=== PATIENT | male | born 1965 | race African-American/Black ===

== ENCOUNTER 2017-03-28 15:09 | Inpatient (IN) | payer MEDICAID ==
[~2017-03-28] VITALS: Ht 190.5 cm; Wt 131.7 kg
[~2017-03-28 15:09] MED LIST: ALPR1TAB2 PO; ALPR2TAB2 PO; CARB200T PO; DOCU-109 PO; FERR325T58 PO; HYDR-2758 PO; HYDR50TA6 PO; METF500T4 PO; METO100T7 PO; MORP30TA83 PO; OXYC-323 PO; OXYC20TA42 PO; OXYC30TA PO; OXYC5CAP PO; OXYC60TA7 PO; OXYC80TA16 PO; PANT40TA3 PO; QUET400T4 PO; QUET50TA5 PO; SULF1TAB24 PO; TAMS0.4C97 PO
--- NOTE | 2017-03-28 15:55 | PHYS DOC ---
Past Medical History Past Medical History: CAD, Diabetes-Type II, Hypertension, Kidney Stone, Liver Disease, OK, Seizure, Stroke, Other Additional Past Medical Histor: Deaf in R Ear. Past Surgical History: Angioplasty, Other Additional Past Surgical Histo: Back, face, feet, STENT PLACEMENT,KELOID SURGERY Alcohol Use: None Drug Use: None Adult General Chief Complaint Chief Complaint: CHEST PAIN HPI HPI Patient is a 51 year old M who presents with chest pain that started today. Patient states he has central chest plain nonradiating. Patient states she's had one previous stent and is currently on Xaralto for history of PEs. Patient states he smokes, has hypertension, is diabetic and is obese. Patient does not currently see a net maker. Patient denies any shortness of breath. Patient denies any fevers. Patient is no other complaints. Review of Systems Review of Systems GEN: Denies fevers, chills, sweats HEENT: Denies blurred vision, sore throat CV: Chest pain RESP: Denies shortness of air, cough GI: Denies n/v/d NEURO: Denies confusion, dizziness MSK: Denies weakness, joint pain/swelling All other systems were reviewed and found to be within normal limits, except as documented in this note. Current Medications Current Medications Current Medications Medications (Trade) Dose Ordered Sig/Debby Start Time Stop Time Status Last Admin Dose Admin Acetaminophen (Tylenol) 650 mg 1X ONCE 03/28/17 16:00 03/28/17 16:01 DC 03/28/17 16:09 650 MG Fentanyl Citrate (Fentanyl 2ml Vial) 100 mcg 1X ONCE 03/28/17 17:45 03/28/17 17:46 DC Info (Do NOT chart on this entry -- for MONITORING) 1 each PRN DAILY PRN 03/28/17 16:15 03/30/17 16:14 Iohexol (Omnipaque 300 Mg/ml) 75 ml 1X ONCE 03/28/17 16:15 03/28/17 16:16 DC 03/28/17 16:15 75 ML Morphine Sulfate 4 mg 1X ONCE 03/28/17 16:00 03/28/17 16:01 DC 03/28/17 16:10 4 MG Nitroglycerin (Nitro-Dur 0.1mg) 1 patch DAILY 03/29/17 09:00 Nitroglycerin (Nitrostat) 0.4 mg PRN Q5MIN PRN 03/28/17 16:00 Allergies Allergies Allergies Coded Allergies Type Severity Reaction Last Updated Verified Penicillins Allergy Intermediate 06/24/15 Yes ketorolac Allergy Intermediate RASH, ASA is home med 11/25/15 Yes naproxen Allergy Intermediate ASA is home med 10/21/15 Yes prochlorperazine Allergy Intermediate 06/24/15 Yes tramadol Allergy Intermediate TOLERATES PERCOCET 06/24/15 Yes acetaminophen Adverse Reaction Unknown 03/28/17 Yes Physical Exam Physical Exam GEN.: Mild distress. Alert and oriented. HEENT: Head is normocephalic, atraumatic NECK: Supple. LUNGS: CTAB. HEART: RRR, S1, S2 present. Peripheral pulses intact ABDOMEN: Soft, nontender. Positive bowel sounds. EXTREMITIES: Without any cyanosis. NEUROLOGIC: Normal speech, normal tone PSYCHIATRIC: Normal affect, normal mood. SKIN: No ulcerations Current Patient Data Vital Signs Vital Signs Date Time Temp Pulse Resp B/P (MAP) Pulse Ox O2 Delivery O2 Flow Rate FiO2 03/28/17 16:10 18 97 Room Air 03/28/17 15:18 97.9 98 128/75 (92) 97.9 Lab Values Laboratory Tests Test 03/28/17 15:30 White Blood Count 5.4 x10^3/uL (4.0-11.0) Red Blood Count 5.26 x10^6/uL (4.30-5.70) Hemoglobin 15.1 g/dL (13.0-17.5) Hematocrit 46.4 % (39.0-53.0) Mean Corpuscular Volume 88 fL (79-100) Mean Corpuscular Hemoglobin 29 pg (25-35) Mean Corpuscular Hemoglobin Concent 33 g/dL (31-37) Red Cell Distribution Width 14.9 % (11.5-14.5) H Platelet Count 232 x10^3/uL (140-400) Neutrophils (%) (Auto) 42 % (31-73) Lymphocytes (%) (Auto) 45 % (24-48) Monocytes (%) (Auto) 10 % (0-9) H Eosinophils (%) (Auto) 3 % (0-3) Basophils (%) (Auto) 0 % (0-3) Neutrophils # (Auto) 2.3 x10^3uL (1.8-7.7) Lymphocytes # (Auto) 2.4 x10^3/uL (1.0-4.8) Monocytes # (Auto) 0.5 x10^3/uL (0.0-1.1) Eosinophils # (Auto) 0.2 x10^3/uL (0.0-0.7) Basophils # (Auto) 0.0 x10^3/uL (0.0-0.2) Sodium Level 139 mmol/L (136-145) Potassium Level 4.1 mmol/L (3.5-5.1) Chloride Level 101 mmol/L (98-107) Carbon Dioxide Level 29 mmol/L (21-32) Anion Gap 9 (6-14) Blood Urea Nitrogen 16 mg/dL (8-26) Creatinine 1.1 mg/dL (0.7-1.3) Estimated GFR (Cockcroft-Gault) 86.1 BUN/Creatinine Ratio 15 (6-20) Glucose Level 139 mg/dL (70-99) H Calcium Level 8.8 mg/dL (8.5-10.1) Total Bilirubin 0.4 mg/dL (0.2-1.0) Aspartate Amino Transferase (AST) 28 U/L (15-37) Alanine Aminotransferase (ALT) 30 U/L (16-63) Alkaline Phosphatase 75 U/L (46-116) Troponin I Quantitative < 0.017 ng/mL (0.000-0.055) Total Protein 7.6 g/dL (6.4-8.2) Albumin 3.8 g/dL (3.4-5.0) Albumin/Globulin Ratio 1.0 (1.0-1.7) Laboratory Tests 03/28/17 15:30 Laboratory Tests 03/28/17 15:30 EKG EKG 1516: EKG shows normal sinus rhythm rate of 92 no STEMI[] Radiology/Procedures Radiology/Procedures Chest x-ray NAD CTA chest NAD[] Course & Med Decision Making Course & Med Decision Making Pertinent Labs and Imaging studies reviewed. (See chart for details) ED course: Patient was seen and examined emergency room cardiac workup was ordered along with a CTA of the chest Patient is still having chest pain therefore will give 4mg of morphine Patient still having chest pain we'll prescribe 50 g of fentanyl Updated patient on lab results and plan to admit for cardiac workup 1758: Discussed CC/HP/PMH with Dr. Montiel and recommends admit and consult cardiology MDM: After reviewing the chart, CC/HPI/PMH, physical exam, [lab results], [ radiological results], I do not believe the patient having a STEMI, PE, thoracic aortic dissection. Patient has a cardiac risk factors and with his persistent chest pain will admit for further evaluation and management. [] Dragon Disclaimer Dragon Disclaimer This electronic medical record was generated, in whole or in part, using a voice recognition dictation system. Departure Departure Impression: Primary Impression: Chest pain Additional Impression: CAD (coronary artery disease) Disposition: 09 ADMITTED INPATIENT Admitting Physician: Other (Dr. Montiel) Condition: STABLE Referrals: NO PCP (PCP) Problem Qualifiers ABDIFATAH NICHOLS DO Mar 28, 2017 15:55
[2017-03-28] MEDS ORDERED: MORPHINE SULFATE 4 MG/ML DISP.SYRIN. IV ONE (16:00)
[2017-03-28] MEDS ORDERED: ACETAMINOPHEN 325 MG TABLET. PO ONE (16:00)
[2017-03-28] MEDS ORDERED: NITROGLYCERIN SUBLINGUAL 0.4 MG BOTTLE OF 25. SL PRN ×2 (16:00→18:15)
--- NOTE | 2017-03-28 16:03 | EKG ---
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
[2017-03-28] MEDS ORDERED: IOHEXOL 300 MG/ML 100ML VIAL. IV ONE (16:15)
[2017-03-28] MEDS ORDERED: CONTRAST GIVEN MC PRN (16:15)
--- NOTE | 2017-03-28 16:18 | RAD ---
Indication: Atraumatic chest pain today. Midsternal chest pain. Diabetic and hypertensive. Technique: Upright portable chest radiograph was obtained. Comparison is from February 07, 2016. Findings: The lungs are clear. The heart is not enlarged and there is no heart failure. Bony structures are intact. Leads overlie the patient. Impression: No acute thoracic findings.
[2017-03-28 16:35] LABS: BASO % 0 % (0-3); EOS % 3 % (0-3); HEMATOCRIT 46.4 % (39.0-53.0); HEMOGLOBIN 15.1 g/dL (13.0-17.5); LYMPH # 2.4 x10^3/uL (1.0-4.8); LYMPH % 45 % (24-48); MEAN CORPUSCULAR HEMOGLOBIN 29 pg (25-35); MEAN CORPUSCULAR HGB CONC 33 g/dL (31-37); MEAN CORPUSCULAR VOLUME 88 fL (79-100); MONO % 10 % (0-9); NEUT % 42 % (31-73); PLATELET COUNT 232 x10^3/uL (140-400); RED BLOOD COUNT 5.26 x10^6/uL (4.30-5.70); RED CELL DISTRIBUTION WIDTH 14.9 % (11.5-14.5); WHITE BLOOD COUNT 5.4 x10^3/uL (4.0-11.0)
[2017-03-28 16:48] LABS: CALCIUM 8.8 mg/dL (8.5-10.1); CREATININE 1.1 mg/dL (0.7-1.3); GFR 86.1; POTASSIUM 4.1 mmol/L (3.5-5.1)
[2017-03-28 16:54] LABS: ALBUMIN 3.8 g/dL (3.4-5.0); TOTAL BILIRUBIN 0.4 mg/dL (0.2-1.0); TOTAL PROTEIN 7.6 g/dL (6.4-8.2)
--- NOTE | 2017-03-28 17:34 | RAD ---
CTA Chest with contrast: Clinical History: CP, HX PE, LIMITED IV ACCESS, [id number] 75ML, NO PRIORS Shortness of breath. Axial helical images of the chest were obtained after the administration of 75 cc of IV Omni 300 and timed appropriately for a pulmonary arterial study. Conventional axial reconstruction was performed in addition to coronal, sagittal and bilateral oblique MIP (maximum intensity projection). This study was ordered to detect possible pulmonary embolism. There are no filling defects to suggest pulmonary embolism. The lungs and pleural margins are clear. There is no mediastinal or hilar lymphadenopathy. The thoracic aorta appears normal. Impression: 1. No evidence of pulmonary embolism. 2. No significant findings. PQRS Compliance Statement: One or more of the following individualized dose reduction techniques were utilized for this examination: 1. Automated exposure control 2. Adjustment of the mA and/or kV according to patient size 3. Use of iterative reconstruction technique Electronically signed by: Uriah Messer III, MD (03/28/2017 5:31 PM) [facility]
[2017-03-28] MEDS ORDERED: fentaNYL PF VIAL 100 MCG/2 ML VIAL IV ONE (17:45)
[2017-03-28] MEDS ORDERED: ONDANSETRON PF 4 MG/2 ML VIAL. IV PRN (18:15)
--- NOTE | 2017-03-28 19:40 | RAD ---
Scrotal ultrasound testicular ultrasound History bilateral testicular pain Sonographic examination of the scrotal contents and testes was performed multiple static images were obtained. Findings: Right: The right testis measures 3.3 x 4.3 x 2.4 cm. Epididymis: normal Hydrocele: Mild Varicocele: Mild Testicular blood flow: normal Left: The left testis measures 3.9 x 2.9 x 2.4 cm. Epididymis: normal Hydrocele: No Varicocele: Mild Testicular blood flow: normal There are small cyst the testes bilaterally however, the testes are otherwise homogeneous. Impression: Normal testes with normal blood flow. No intra or extratesticular mass. Electronically signed by: Uriah Messer III, MD (03/28/2017 7:37 PM) [facility]
[2017-03-28] MEDS ORDERED: RIVA15TA PO (20:11)
[2017-03-28] MEDS ORDERED: OXYC15TA PO (20:13)
[2017-03-28 20:25] VITALS: BP 132/86
[2017-03-28] MEDS ORDERED: ALPR0.5T6 PO (20:26)
[2017-03-28] MEDS ORDERED: ALPRAZolam 1 MG TABLET PO PRN (20:30)
[2017-03-28] MEDS: fentaNYL PF VIAL 100 MCG/2 ML VIAL IV PRN (20:41)
[2017-03-28] MEDS ORDERED: oxyCODONE IR 5 MG TABLET PO PRN ×2 (20:45→22:28)
[2017-03-28] MEDS ORDERED: QUEtiapine 100 MG TABLET. PO SCH (20:45)
[2017-03-28] MEDS ORDERED: QUET300T5 PO (20:48)
[2017-03-28] MEDS ORDERED: metFORMIN 500 MG TABLET PO SCH (21:00)
[2017-03-28] MEDS ORDERED: oxyCODONE ER 40 MG TAB.ER.12H PO SCH (21:00)
[2017-03-28] MEDS: DOCUSATE SODIUM 100 MG CAPSULE. PO SCH (21:00)
[2017-03-28] MEDS ORDERED: oxyCODONE ER 10 MG TAB.ER.12H PO SCH (21:00)
[2017-03-28] MEDS: hydroCHLOROthiazide 25 MG TABLET PO SCH (21:00)
[2017-03-28] MEDS: METOPROLOL TART IMMED RELEASE 50 MG TABLET. PO SCH (21:00)
[2017-03-28] MEDS: QUEtiapine 100 MG TABLET. PO SCH (21:55)
[2017-03-28 22:00] VITALS: BP_SYST 105; BP_SYST 137; BP_DIAS 64
[2017-03-28] MEDS: ALPRAZolam 0.5 MG TABLET PO PRN (22:00)
[2017-03-29] MEDS: fentaNYL PF VIAL 100 MCG/2 ML VIAL IV PRN ×2 (00:28→05:34)
[2017-03-29 02:37] VITALS: BP 127/68
[2017-03-29 06:34] LABS: BASO % 0 % (0-3); EOS % 4 % (0-3); HEMATOCRIT 44.8 % (39.0-53.0); HEMOGLOBIN 14.4 g/dL (13.0-17.5); LYMPH % 51 % (24-48); MEAN CORPUSCULAR HEMOGLOBIN 29 pg (25-35); MEAN CORPUSCULAR HGB CONC 32 g/dL (31-37); MEAN CORPUSCULAR VOLUME 89 fL (79-100); MONO % 9 % (0-9); NEUT % 36 % (31-73); PLATELET COUNT 208 x10^3/uL (140-400); RED BLOOD COUNT 5.03 x10^6/uL (4.30-5.70); WHITE BLOOD COUNT 3.9 x10^3/uL (4.0-11.0)
[2017-03-29 06:47] LABS: CALCIUM 8.6 mg/dL (8.5-10.1); GFR 96.1; POTASSIUM 3.8 mmol/L (3.5-5.1)
[2017-03-29 07:00] VITALS: BP 125/80
[2017-03-29] MEDS ORDERED: QUEtiapine 25 MG TABLET. PO SCH (09:00)
[2017-03-29] MEDS ORDERED: QUEtiapine 100 MG TABLET. PO SCH (09:00)
[2017-03-29] MEDS ORDERED: RIVAROXABAN 15 MG TABLET. PO SCH (09:00)
[2017-03-29] MEDS: ALPRAZolam 0.5 MG TABLET PO PRN (09:04)
[2017-03-29] MEDS: oxyCODONE ER 15 MG TAB.ER.12H PO SCH ×2 (09:04→21:24)
[2017-03-29] MEDS: PANTOPRAZOLE 40 MG TABLET.DR. PO SCH (09:05)
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
[2017-03-29 10:13] LABS: CHOLESTEROL/HDL RATIO 3.5
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
[2017-03-29 11:00] VITALS: BP 158/81
[2017-03-29] MEDS: hydroCHLOROthiazide 25 MG TABLET PO SCH ×2 (11:53→21:00)
[2017-03-29] MEDS: FERROUS SULFATE 325 MG TABLET. PO SCH (11:53)
[2017-03-29] MEDS: DOCUSATE SODIUM 100 MG CAPSULE. PO SCH ×2 (11:54→21:00)
[2017-03-29] MEDS: METOPROLOL TART IMMED RELEASE 50 MG TABLET. PO SCH (11:54)
[2017-03-29] MEDS: carBAMazepine 200 MG TABLET PO SCH (11:54)
[2017-03-29] MEDS: NITROGLYCERIN 0.1MG/HR PATCH. TD SCH (11:56)
--- NOTE | 2017-03-29 12:13 | EKG ---
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
[2017-03-29] MEDS ORDERED: HYDROmorphone 2 MG/ML VIAL IV ONE (13:00)
[2017-03-29 14:43] VITALS: BP 121/83
[2017-03-29] MEDS ORDERED: LIDO:MAALOX:DONNATAL 1:1:1 15 ML SINGLE DOSE SWSW ONE (16:00)
--- NOTE | 2017-03-29 17:43 | CARD ---
APPROVED REPORT EXAM: Two-dimensional and M-mode echocardiogram with Doppler and color Doppler. Other Information Quality : Good INDICATION Dyspnea 2D DIMENSIONS Left Atrium(2D)3.6 (1.6-4.0cm)IVSd1.2 (0.7-1.1cm) Aortic Root(2D)3.1 (2.0-3.7cm)LVDd4.4 (3.9-5.9cm) LVOT Diameter2.0 (1.8-2.4cm)PWd1.2 (0.7-1.1cm) LVDs3.2 (2.5-4.0cm)FS (%) 26.8 % SV46.6 mlLVEF(%)52.5 (>50%) Aortic Valve AoV Peak You.124.4cm/sAoV VTI25.3cm AO Peak GR.6.2mmHgLVOT VTI 19.89cm AO Mean GR.4mmHgAVA (VTI)2.60cm2 Mitral Valve MV E Uolhggdq41.1cm/sMV DECEL [id number] MV A Yfxxwcxy21.9cm/sE/A Ratio1.3 TDI Lateral E' P. V16.41cm/sMedial E' P. V9.01cm/s E/Lateral E'4.1E/Medial E'7.4 Tricuspid Valve TR P. Povnvcew436yv/sRAP [id number] TR Peak Gr.82qsVqLSJM39qlEl LEFT VENTRICLE The left ventricle is normal size. There is borderline concentric left ventricular hypertrophy. Left ventricle systolic function is normal. The Ejection Fraction is 55-60%. There is normal LV segmental wall motion. Tissue Doppler imaging reveals abnormal left ventricular diastolic dysfunction. RIGHT VENTRICLE The right ventricle is normal size. There is normal right ventricular wall thickness. The right ventr icular systolic function is normal. ATRIA The left atrium size is normal. The right atrium size is normal. The interatrial septum is intact wit h no evidence for an atrial septal defect or patent foramen ovale as noted on 2-D or Doppler imaging. AORTIC VALVE The aortic valve is calcified but opens well. Doppler and Color Flow revealed no significant aortic r egurgitation. There is no significant aortic valvular stenosis. MITRAL VALVE The mitral valve leaflets are calcified. There is no evidence of mitral valve prolapse. There is no m itral valve stenosis. Doppler and Color-flow revealed mild mitral regurgitation. TRICUSPID VALVE The tricuspid valve is normal in structure and function. Doppler and Color Flow revealed mild tricusp id regurgitation. The PA pressure was estimated at 13 mmHg. There is no tricuspid valve prolapse or v egetation. There is no tricuspid valve stenosis. PULMONIC VALVE The pulmonary valve is normal in structure and function. Doppler and Color Flow revealed trace pulmon ic valvular regurgitation. There is no pulmonic valvular stenosis. GREAT VESSELS The aortic root is normal in size. The ascending aorta is normal in size. The IVC is normal in size a nd collapses >50% with inspiration. PERICARDIAL EFFUSION There is no pleural effusion. There is no evidence of significant pericardial effusion. Critical Notification Critical Value: No <Conclusion> The left ventricle is normal size. Left ventricle systolic function is normal. The Ejection Fraction is 55-60%. There is borderline concentric left ventricular hypertrophy. There is no significant aortic valvular stenosis. Doppler and Color Flow revealed no significant aortic regurgitation. Doppler and Color-flow revealed mild mitral regurgitation. Doppler and Color Flow revealed mild tricuspid regurgitation. The PA pressure was estimated at 13 mmHg.
[2017-03-29] MEDS: oxyCODONE IR 5 MG TABLET PO PRN (17:44)
[2017-03-29] MEDS: ALPRAZolam 1 MG TABLET PO PRN ×2 (17:44→21:26)
[2017-03-29 19:38] VITALS: BP 116/81
[2017-03-29] MEDS ORDERED: ONDANSETRON ODT 4 MG TAB.RAPDIS. PO PRN (19:45)
[2017-03-29] MEDS: QUEtiapine 100 MG TABLET. PO SCH ×2 (21:00→21:23)
[2017-03-29 23:31] VITALS: BP 129/74
[2017-03-30] MEDS: oxyCODONE IR 5 MG TABLET PO PRN ×3 (00:58→13:08)
[2017-03-30 04:23] VITALS: BP 126/85
[2017-03-30 07:00] VITALS: BP 127/85
[2017-03-30] MEDS: NITROGLYCERIN 0.1MG/HR PATCH. TD SCH (09:00)
[2017-03-30] MEDS ORDERED: ANTI-COAG MONITOR BY PHARMACY. MC PRN (09:15)
[2017-03-30] MEDS: oxyCODONE ER 15 MG TAB.ER.12H PO SCH (09:17)
[2017-03-30] MEDS: ALPRAZolam 1 MG TABLET PO PRN (09:19)
[2017-03-30] MEDS ORDERED: REGADENOSON 0.4 MG/5 ML DISP.SYRIN. IV ONE (10:15)
[2017-03-30 11:25] VITALS: BP 127/85
[2017-03-30] MEDS: carBAMazepine 200 MG TABLET PO SCH (11:25)
[2017-03-30] MEDS: METOPROLOL TART IMMED RELEASE 50 MG TABLET. PO SCH (11:25)
[2017-03-30] MEDS: DOCUSATE SODIUM 100 MG CAPSULE. PO SCH (11:25)
[2017-03-30] MEDS: FERROUS SULFATE 325 MG TABLET. PO SCH (11:26)
[2017-03-30] MEDS: hydroCHLOROthiazide 25 MG TABLET PO SCH (11:26)
[2017-03-30] MEDS: QUEtiapine 100 MG TABLET. PO SCH (11:26)
[2017-03-30] MEDS: PANTOPRAZOLE 40 MG TABLET.DR. PO SCH (11:26)
--- NOTE | 2017-03-30 11:57 | PDOC3 ---
Discharge Summary Visit Information Date of Admission: Mar 29, 2017 Date of Discharge: Mar 30, 2017 Admitting Diagnosis Comment: 1. CHEST PAIN, costochondritis 2. HX CAD with previous stent by report 3. morbid obesity 4. hx pulmonary embolus 2016 5. tobacco abuse Final Diagnosis Problems Medical Problems: (1) CAD (coronary artery disease) Status: Acute (2) Chest pain Status: Acute Brief Hospital Course Allergies Allergies Coded Allergies Type Severity Reaction Last Updated Verified Penicillins Allergy Intermediate 06/24/15 Yes ketorolac Allergy Intermediate RASH, ASA is home med 11/25/15 Yes naproxen Allergy Intermediate ASA is home med 10/21/15 Yes prochlorperazine Allergy Intermediate 06/24/15 Yes tramadol Allergy Intermediate TOLERATES PERCOCET 06/24/15 Yes acetaminophen Adverse Reaction Unknown 03/28/17 Yes Vital Signs Vital Signs Date Time Temp Pulse Resp B/P (MAP) Pulse Ox O2 Delivery O2 Flow Rate FiO2 03/30/17 11:25 72 127/85 03/30/17 09:17 96 Room Air 03/30/17 07:00 97.4 16 97.4 Lab Results Laboratory Tests Test 03/28/17 15:30 03/29/17 00:15 03/29/17 06:00 White Blood Count 5.4 x10^3/uL (4.0-11.0) 3.9 x10^3/uL (4.0-11.0) Red Blood Count 5.26 x10^6/uL (4.30-5.70) 5.03 x10^6/uL (4.30-5.70) Hemoglobin 15.1 g/dL (13.0-17.5) 14.4 g/dL (13.0-17.5) Hematocrit 46.4 % (39.0-53.0) 44.8 % (39.0-53.0) Mean Corpuscular Volume 88 fL (79-100) 89 fL (79-100) Mean Corpuscular Hemoglobin 29 pg (25-35) 29 pg (25-35) Mean Corpuscular Hemoglobin Concent 33 g/dL (31-37) 32 g/dL (31-37) Red Cell Distribution Width 14.9 % (11.5-14.5) 15.0 % (11.5-14.5) Platelet Count 232 x10^3/uL (140-400) 208 x10^3/uL (140-400) Neutrophils (%) (Auto) 42 % (31-73) 36 % (31-73) Lymphocytes (%) (Auto) 45 % (24-48) 51 % (24-48) Monocytes (%) (Auto) 10 % (0-9) 9 % (0-9) Eosinophils (%) (Auto) 3 % (0-3) 4 % (0-3) Basophils (%) (Auto) 0 % (0-3) 0 % (0-3) Neutrophils # (Auto) 2.3 x10^3uL (1.8-7.7) 1.4 x10^3uL (1.8-7.7) Lymphocytes # (Auto) 2.4 x10^3/uL (1.0-4.8) 2.0 x10^3/uL (1.0-4.8) Monocytes # (Auto) 0.5 x10^3/uL (0.0-1.1) 0.4 x10^3/uL (0.0-1.1) Eosinophils # (Auto) 0.2 x10^3/uL (0.0-0.7) 0.1 x10^3/uL (0.0-0.7) Basophils # (Auto) 0.0 x10^3/uL (0.0-0.2) 0.0 x10^3/uL (0.0-0.2) Sodium Level 139 mmol/L (136-145) 141 mmol/L (136-145) Potassium Level 4.1 mmol/L (3.5-5.1) 3.8 mmol/L (3.5-5.1) Chloride Level 101 mmol/L (98-107) 104 mmol/L (98-107) Carbon Dioxide Level 29 mmol/L (21-32) 29 mmol/L (21-32) Anion Gap 9 (6-14) 8 (6-14) Blood Urea Nitrogen 16 mg/dL (8-26) 13 mg/dL (8-26) Creatinine 1.1 mg/dL (0.7-1.3) 1.0 mg/dL (0.7-1.3) Estimated GFR (Cockcroft-Gault) 86.1 96.1 BUN/Creatinine Ratio 15 (6-20) Glucose Level 139 mg/dL (70-99) 94 mg/dL (70-99) Calcium Level 8.8 mg/dL (8.5-10.1) 8.6 mg/dL (8.5-10.1) Total Bilirubin 0.4 mg/dL (0.2-1.0) Aspartate Amino Transf (AST/SGOT) 28 U/L (15-37) Alanine Aminotransferase (ALT/SGPT) 30 U/L (16-63) Alkaline Phosphatase 75 U/L (46-116) Troponin I Quantitative < 0.017 ng/mL (0.000-0.055) < 0.017 ng/mL (0.000-0.055) < 0.017 ng/mL (0.000-0.055) Total Protein 7.6 g/dL (6.4-8.2) Albumin 3.8 g/dL (3.4-5.0) Albumin/Globulin Ratio 1.0 (1.0-1.7) Triglycerides Level 59 mg/dL (0-150) Cholesterol Level 143 mg/dL (0-200) LDL Cholesterol, Calculated 90 mg/dL (0-100) VLDL Cholesterol, Calculated 12 mg/dL (0-40) Non-HDL Cholesterol Calculated 102 mg/dL (0-129) HDL Cholesterol 41 mg/dL (40-60) Cholesterol/HDL Ratio 3.5 Brief Hospital Course Mr. Harmon is a 51 old heavyset -[place] male admitted for chest pain. MPI was done. If negative will send home. Unfortunately remarkable course for not seeking behavior. Follows with pain management. Requests his narcotic scripts upon discharge namely OxyContin 15 twice a day and oxycodone 20 IV 3 times a day when necessar, some Xanax 0.5 twice a day when necessary, along with Lexapro or Seroquel 300 daily at bedtime extended release, along with metoprolol 100 extended release once a day and PPI. Heavy discussion as he was curious what causes chest pain. Did touch and some GERD, anxiety, costochondritis and he understands. Discharge disposition to home medications done provided with him discussed with DADA Alvarenga consults performed cardiology procedures MPI Urge time 32 minutes. 50% counseling Discharge Information Condition at Discharge: Improved, Stable Disposition/Orders: D/C to Home Scheduled Alprazolam (Alprazolam), 1 TAB PO PRN BID, (Reported) Carbamazepine (Tegretol), 1 TAB PO DAILY, (Reported) Docusate Sodium (Colace), 1 CAP PO BID Ferrous Sulfate (Iron Supplement), 1 TAB PO DAILY Hydrochlorothiazide (Hydrochlorothiazide Tablet), 0.5 TAB PO BID, (Reported) Metformin Hcl (Metformin Hcl), 1 TAB PO BID, (Reported) Metoprolol Tartrate (Metoprolol Tartrate), 1 TAB PO DAILY, (Reported) Pantoprazole Sodium (Protonix), 1 TAB PO DAILY, (Reported) Quetiapine Fumarate (Seroquel), 1 TAB PO DAILY, (Reported) Quetiapine Fumarate (Seroquel), 1 TAB PO QHS, (Reported) Rivaroxaban (Xarelto), 15 MG PO DAILY, (Reported) Scheduled PRN Oxycodone Hcl (Oxycodone Hcl), 1 TAB PO TID PRN PRN for PAIN, (Reported) JOSE MIGUEL GONSALES MD Mar 30, 2017 11:57
--- NOTE | 2017-03-30 12:26 | PDOC ---
CARDIO Progress Notes Date and Time Date of Service 03/30/2017 Time of Evaluation 1215 Subjective Subjective: No shortness of breath, No Palpitations, No Dizziness, Other (CP still but better controlled with opioid) Vitals Vitals Vital Signs Date Time Temp Pulse Resp B/P (MAP) Pulse Ox O2 Delivery O2 Flow Rate FiO2 03/30/17 11:25 72 127/85 03/30/17 09:17 96 Room Air 03/30/17 07:00 97.4 16 97.4 Weight Weight [ ] Input and Output Intake and Output Intake and Output 03/30/17 07:00 Intake Total 2260 ml Output Total 1850 ml Balance 410 ml Intake Oral 2260 ml Output Urine Total 1850 ml # Voids 6 Physical Exam HEENT: Neck Supple W Full Motion Chest: Symmetric LUNGS: Clear to Auscultation Heart: S1S2, RRR (SR) Abdomen: Soft N/T Extremities: No Calf Tenderness Neurology: alert, oriented, follow commands Assessment Assessment 1. Chest pain: mixed features. Doubt ACS, likely MSK and anxiety 2. CAD: PCI/stent 1995 x1 stent and 2012 x1 stent. 3. PE; noted 10/2016. on xarelto 4. HTN: controlled 5. DM2/HLP 6. Tobaccoism 7. COPD with suspecting YANIQUE 8. Opioid dependence: sees pain management 9. Hx of PUD: noted with H pylori treated a year ago 10. Mild valvular insufficiency: EF and wall motion normal Recommendations 1. Continue with secondary prevention measures. 2. If MPI unremarkable then may DC per CV perspective 3. Smoking cessation 4. 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
--- NOTE | 2017-03-30 13:05 | RAD ---
APPROVED REPORT Test Type: Pharmacological Stress Nurse/Tech: Sadi Test Indications: CP/ CAD Cardiac History: CAD, HTN, Smoker, see EMR Medications: see EMR Medical History: Asthma, Seziures, Smoker, DM, Liver Disease, see EMR Resting ECG: SR Resting Heart Rate: 72 bpm Resting Blood Pressure: 126/80mmHg Pretest Chest Pain: NoneNo chest pain Nurse/Tech Notes S1, S2 wnl. Lungs CTA. Pt denies any pain or sob. Consent: The procedure was explained to the patient in lay terms. Informed consent was witnessed. Mauro eout was entered into mYwindow. History and Stress Test performed by RT Hortensia (Abbie) (N) Pharm. Details Pharmacologic stress testing was performed using 0.4mg per 5ml of regadenoson given intravenously ove r 7-10 seconds. Stress Symptoms Nausea, KIRBY POST EXERCISE Reason for Termination: Infusion complete Max HR: 101 bpm Max Blood Pressure: 145/72mmHg Chest Pain: No. Arrhythmia: No. ST Change: No. INTERPRETATION Stress EKG Conclusion: No evidence of stress induced EKG changes. Imaging Protocol IMAGE PROTOCOL: Rest Tc-99m/stress Tc-99m 1 day Rest: Stress: Viability: Radiopharm.Tc99m [id number] Sestamibi [id number] 34mCi Duration 15min. 10min. Img Date 03/30/2017 03/30/2017 Inj-Img [id number]. 60min. Rest Admin Site:IV - Left AntecubitalAdministrator:RT Jasmin PaganR)(N) Stress Admin Site: IV - Left AntecubitalAdministrator: RT Hortensia (Abbie)(N) STRESS DATA End Diast. Vol.135.0mlAv. Heart Rate74.0bpm End Syst. Vol.35.0mlCO Index BSA7.4L/min Myocardial Nbfi987.0gEject. Mmstizbe32.0% Stress Rates Pk. Fill Rate3.15EDV/secLVtime Pk. Fill 127.54msec Pk. Empty Rate3.84ESV/secLVtime Pk. Jbtmt885.73msec 04/18 Pk. Fill1.70EDV/sec Stress Scores Regional WT0.00Summed WT0.00 Regional WM0.00Summed WM3.00 The rest and stress images show normal perfusion, normal contraction and thickening. LV Perf. Quant 17 Seg. SSS0.00 17 Seg. SRS0.00 17 Seg. SDS0.00 Stress Defect Extent (% LAD)0.00Rest Defect Extent (% LAD)0.00Rev. Defect Extent (% LAD)0.00 Stress Defect Extent (% LCX) 0.00Rest Defect Extent (% LCX)0.00Rev. Defect Extent (% LCX)0.00 Stress Defect Extent (% RCA)0.00Rest Defect Extent (% RCA)0.00Rev. Defect Extent (% RCA)0.00 Stress Defect Extent (% ESTRADA)0.00Rest Defect Extent (% ESTRADA)0.00Rev. Defect Extent (% ESTRADA)0.00 Other Information Quality:Good Risk Assessment: Low Risk Conclusion 1. No evidence of stress induced EKG changes. 2. Normal perfusion at stress/rest. 3. Low risk study. EF > 70%
[2017-03-30] MEDS ORDERED: RIVAROXABAN 10 MG TABLET. PO SCH (17:00)
[2017-03-30] MEDS ORDERED: metFORMIN 500 MG TABLET PO SCH (17:00)
[2017-03-30] MEDS ORDERED: ATORVASTATIN CALCIUM 10 MG TABLET. PO SCH (21:00)
[2017-03-31] MEDS ORDERED: hydroCHLOROthiazide 25 MG TABLET PO SCH (09:00)
[2017-03-31] MEDS ORDERED: QUEtiapine 25 MG TABLET. PO SCH (09:00)
== END 2017-03-30 14:30 | disposition home or self-care (01) | DRG 206 ==
LOC: ER 15:09 → 2 SOUTH 17:56
PROVIDERS: ADMIT Family Medicine; ATTEND Family Medicine
DX: M94.0 Chondrocostal junction syndrome [Tietze] (principal); E11.22 Type 2 diabetes mellitus with diabetic chronic kidney disease; F11.20 Opioid dependence, uncomplicated; F41.9 Anxiety disorder, unspecified; E66.01 Morbid (severe) obesity due to excess calories; G89.29 Other chronic pain; F17.210 Nicotine dependence, cigarettes, uncomplicated; I12.9 Hypertensive chronic kidney disease with stage 1 through stage 4 chronic kidney disease, or unspecified chronic kidney disease; I25.10 Atherosclerotic heart disease of native coronary artery without angina pectoris; J44.9 Chronic obstructive pulmonary disease, unspecified; K21.9 Gastro-esophageal reflux disease without esophagitis; H91.91 Unspecified hearing loss, right ear; N18.9 Chronic kidney disease, unspecified; E78.5 Hyperlipidemia, unspecified; M19.90 Unspecified osteoarthritis, unspecified site; F32.9 Major depressive disorder, single episode, unspecified; Z82.49 Family history of ischemic heart disease and other diseases of the circulatory system; Z86.711 Personal history of pulmonary embolism; Z83.3 Family history of diabetes mellitus; Z86.73 Personal history of transient ischemic attack (TIA), and cerebral infarction without residual deficits; Z87.442 Personal history of urinary calculi; Z87.11 Personal history of peptic ulcer disease; Z95.5 Presence of coronary angioplasty implant and graft; Z98.1 Arthrodesis status; Z88.6 Allergy status to analgesic agent; Z88.0 Allergy status to penicillin; Z88.8 Allergy status to other drugs, medicaments and biological substances
CPT/HCPCS: 36415; 71010; 71275; 76870; 78452; 80048; 80053; 80061; 84484; 85025; 93005; 93017; 93306; 96374; 96375; 96376; A9500; J1170; J2270; J2785; J3010; Q0162; Q9967; 99285-25

== ENCOUNTER 2018-09-07 13:25 | Inpatient (IN) | payer MEDICAID ==
[~2018-09-07] VITALS: Ht 190.5 cm; Wt 128.8 kg
[~2018-09-07 13:25] MED LIST changes: +ALPR0.5T6 PO; -HYDR-2758 PO; +HYDR-2761 PO; +METF500T16 PO; -METF500T4 PO; -OXYC-323 PO; +OXYC15TA PO; +OXYC1TAB15 PO; -OXYC30TA PO; +OXYC30TA3 PO; +QUET300T5 PO; +RIVA15TA PO
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
[2018-09-07 13:59] LABS: CREATININE ISTAT 0.8 mg/dL (0.5-1.4); ION CA ISTAT 1.19 mmol/L (1.13-1.32); POTASSIUM ISTAT 3.6 mmol/L (3.5-5.0)
[2018-09-07] MEDS ORDERED: IOHEXOL 300 MG/ML 100ML VIAL. IV ONE (14:00)
[2018-09-07 14:03] LABS: BASO % 1 % (0-3); EOS # 0.3 x10^3/uL (0.0-0.7); EOS % 7 % (0-3); HEMATOCRIT 46.1 % (39.0-53.0); HEMOGLOBIN 15.1 g/dL (13.0-17.5); LYMPH # 1.7 x10^3/uL (1.0-4.8); LYMPH % 42 % (24-48); MEAN CORPUSCULAR HEMOGLOBIN 30 pg (25-35); MEAN CORPUSCULAR HGB CONC 33 g/dL (31-37); MEAN CORPUSCULAR VOLUME 90 fL (79-100); MONO # 0.4 x10^3/uL (0.0-1.1); MONO % 10 % (0-9); NEUT # 1.6 x10^3uL (1.8-7.7); NEUT % 40 % (31-73); PLATELET COUNT 205 x10^3/uL (140-400); RED CELL DISTRIBUTION WIDTH 14.4 % (11.5-14.5)
[2018-09-07 14:08] LABS: BILIRUBIN,URINE NEGATIVE (NEG); CLARITY,URINE CLEAR; COLOR,URINE YELLOW; NITRITE,URINE NEGATIVE (NEG); PROTEIN,URINE NEGATIVE (NEG-TRACE); UROBILINOGEN,URINE 0.2 mg/dL (0.2 mg/dL)
[2018-09-07 14:10] LABS: CALCIUM 9.3 mg/dL (8.5-10.1); GFR 95.3; POTASSIUM 3.7 mmol/L (3.5-5.1)
[2018-09-07 14:14] LABS: BARBITURATES NEG (NEG); BENZODIAZEPINES POS (NEG); CANNABINOIDS NEG (NEG); COCAINE NEG (NEG); METHADONE NEG (NEG); OPIATES NEG (NEG); PHENCYCLIDINE NEG (NEG)
[2018-09-07 14:15] LABS: AMPHETAMINE/METHAMPHETAMINE NEG (NEG)
[2018-09-07] MEDS ORDERED: CONTRAST GIVEN. MC PRN (14:15)
[2018-09-07 14:16] LABS: ALBUMIN 3.9 g/dL (3.4-5.0); ALBUMIN/GLOBULIN RATIO 1.1 (1.0-1.7); MAGNESIUM 1.8 mg/dL (1.8-2.4); TOTAL BILIRUBIN 0.4 mg/dL (0.2-1.0); TOTAL PROTEIN 7.3 g/dL (6.4-8.2)
[2018-09-07 14:20] LABS: BACTERIA,URINE 0 /HPF (0-FEW); RBC,URINE OCC /HPF (0-2); WBC,URINE 0 /HPF (0-4)
[2018-09-07 14:21] LABS: PROTHROMBIN TIME PATIENT 26.7 SEC (11.7-14.0)
--- NOTE | 2018-09-07 15:06 | RAD ---
CHEST AP ONLY Clinical indications: Fall. Chest pain. COMPARISON: March 28, 2017. Findings: No acute lung infiltrate or pleural effusion or pulmonary edema or lung mass or pneumothorax is seen. The heart size, pulmonary vasculature, mediastinum and both bradley are unremarkable. Impression: No acute radiographic abnormality is seen. Electronically signed by: Duke Schulte MD (09/07/2018 3:03 PM) [facility]
--- NOTE | 2018-09-07 15:37 | RAD ---
CT HEAD AND CERVICAL SPINE WO, CT CHEST ABD PELVIS W/CONTRAST Clinical indications: Change of mental status. History of CVA. On Coumadin. Fall. Mid chest pain. Right upper quadrant abdominal pain. NONCONTRAST HEAD CT COMPARISON: February 07, 2016. Technique: Noncontrast axial cross sectional scanning of the head was performed. PQRS compliance Statement One or more of the following individualized dose reduction techniques were utilized for this study: 1. Automated exposure control 2. Adjustment of the mA and/or kV according to patient size 3. Use of iterative reconstruction technique Findings: No acute intracranial hemorrhage or midline shift or mass-effect or hydrocephalus or extra-axial fluid collection is seen. No focal hypodense area or sulci effacement is seen to indicate an acute infarct or edema radiographically. No skull fracture or pneumocephalus is seen. No opacification of the mastoid sinuses or the middle ear cavities is seen. There is complete opacification of the upper aspect of the left maxillary sinus. The maxillary sinuses are not completely seen in this study.Old posttraumatic and surgical changes of the left orbit are seen. IMPRESSION: No acute intracranial abnormality is seen. Complete opacification of the upper left maxillary sinus. This has increased from the prior study. The maxillary sinuses are not completely seen in this study. CERVICAL SPINE CT WITHOUT CONTRAST TECHNIQUE: Noncontrast helical CT scanning of the cervical spine was performed. Multiplanar 2-D reconstructions were generated. FINDINGS: No acute fracture or discitis or lytic process or prevertebral soft tissue swelling is evident. No perching of facet joints is seen. IMPRESSION: No acute fracture. CT STUDY OF THE CHEST AND ABDOMEN AND PELVIS WITH CONTRAST TECHNIQUE: After IV infusion of 75 cc of Omnipaque 300, helical CT scanning of the chest and abdomen and pelvis was performed. No GI contrast was administered. This may decrease the sensitivity to detect GI tract pathology. PQRS compliance Statement One or more of the following individualized dose reduction techniques were utilized for this study: 1. Automated exposure control 2. Adjustment of the mA and/or kV according to patient size 3. Use of iterative reconstruction technique COMPARISON: CT study of the chest dated March 28, 2017. CT study of the abdomen and pelvis dated February 14, 2015. CHEST CT: No enlarged thoracic lymphadenopathy is evident. No focal aneurysmal dilatation or dissection of the thoracic aorta is seen. The heart size is at the upper limits of normal. No pericardial effusion is seen. No pleural effusion or pneumothorax is seen. Dependent groundglass lung infiltrates are seen bilaterally consistent with atelectasis. No lung consolidation is seen otherwise. The proximal bronchial tree is patent. There are old nondisplaced fractures of the anterior lateral aspect of the right 10th rib and lateral aspect of the right 11th rib. These were seen on the previous abdomen and pelvis CT. No acute appearing rib fracture is evident. ABDOMEN AND PELVIS CT: The liver and spleen and pancreas and gallbladder are normal. No extra hepatic biliary ductal dilatation is seen. No adrenal mass is evident. Both kidneys are normal without hydronephrosis or hydroureter. Urinary bladder is not distended. No focal aneurysmal dilatation of the abdominal aorta is seen. No enlarged abdominal or pelvic lymphadenopathy is evident. The appendix is normal. No obstructive bowel pattern is evident. No free intraperitoneal air or free fluid or mesenteric edema is seen. No acute fracture or lytic process is seen. Lumbar fusion at L4-5 is evident. Anterior abdominal wall soft tissue edema or small subcutaneous hematomas are evident. IMPRESSION: Anterior abdominal wall soft tissue edema or small subcutaneous hematomas are evident. No other acute abnormality of the chest or abdomen or pelvis is seen. Electronically signed by: Duke Schulte MD (09/07/2018 3:34 PM) [facility]
[2018-09-07] MEDS ORDERED: fentaNYL PF VIAL 100 MCG/2 ML VIAL IV ONE (16:15)
[2018-09-07] MEDS ORDERED: OXYC30TA64 PO (16:51)
[2018-09-07] MEDS ORDERED: WARF10TA40 PO ×2 (16:51→18:20)
[2018-09-07] MEDS ORDERED: TRAZ-118 PO (16:51)
[2018-09-07] MEDS ORDERED: MIRT15TA PO (16:51)
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
--- NOTE | 2018-09-07 17:30 | NUR ---
Pt arrived from the ED. Oriented to his room and call light. Dr Valladares called for orders.
[2018-09-07] MEDS ORDERED: fentaNYL PF VIAL 100 MCG/2 ML VIAL IV PRN (18:00)
[2018-09-07] MEDS: fentaNYL PF VIAL 100 MCG/2 ML VIAL IV PRN ×2 (18:05→21:09)
[2018-09-07] MEDS ORDERED: ALPR1TAB6 PO (18:24)
[2018-09-07 18:47] VITALS: BP 120/91
[2018-09-07 19:59] VITALS: BP 139/88
[2018-09-07] MEDS: METOPROLOL TART IMMED RELEASE 50 MG TABLET. PO ONE ×2 (20:09→20:14)
[2018-09-07] MEDS: DOCUSATE SODIUM 100 MG CAPSULE. PO SCH (20:10)
[2018-09-07] MEDS: ALPRAZolam 1 MG TABLET PO SCH (20:10)
[2018-09-07] MEDS: oxyCODONE ER 15 MG TAB.ER.12H PO SCH (20:11)
[2018-09-07] MEDS ORDERED: MIRTAZAPINE 15 MG TABLET PO SCH (21:00)
[2018-09-07] MEDS ORDERED: QUEtiapine 100 MG TABLET. PO SCH (21:00)
[2018-09-07] MEDS ORDERED: traZODone 50 MG TABLET. PO SCH (21:00)
[2018-09-07] MEDS: oxyCODONE IR 5 MG TABLET PO PRN (21:39)
[2018-09-07 22:00] VITALS: BP 130/76
[2018-09-08] MEDS: oxyCODONE IR 5 MG TABLET PO PRN ×2 (05:11→13:15)
[2018-09-08] MEDS ORDERED: PANTOPRAZOLE 40 MG TABLET.DR. PO SCH (07:30)
[2018-09-08 07:36] VITALS: BP 133/78
[2018-09-08 07:44] LABS: BASO % 0 % (0-3); EOS # 0.2 x10^3/uL (0.0-0.7); EOS % 4 % (0-3); HEMATOCRIT 46.4 % (39.0-53.0); HEMOGLOBIN 15.1 g/dL (13.0-17.5); LYMPH # 1.8 x10^3/uL (1.0-4.8); LYMPH % 45 % (24-48); MEAN CORPUSCULAR HEMOGLOBIN 29 pg (25-35); MEAN CORPUSCULAR HGB CONC 33 g/dL (31-37); MEAN CORPUSCULAR VOLUME 90 fL (79-100); MONO # 0.4 x10^3/uL (0.0-1.1); MONO % 9 % (0-9); NEUT # 1.7 x10^3uL (1.8-7.7); NEUT % 41 % (31-73); PLATELET COUNT 179 x10^3/uL (140-400); RED BLOOD COUNT 5.14 x10^6/uL (4.30-5.70); RED CELL DISTRIBUTION WIDTH 14.7 % (11.5-14.5); WHITE BLOOD COUNT 4.1 x10^3/uL (4.0-11.0)
[2018-09-08 07:53] LABS: CALCIUM 8.7 mg/dL (8.5-10.1); CREATININE 0.9 mg/dL (0.7-1.3); GFR 107.6
[2018-09-08] MEDS: oxyCODONE ER 15 MG TAB.ER.12H PO SCH (08:25)
[2018-09-08] MEDS: ALPRAZolam 1 MG TABLET PO SCH (08:27)
[2018-09-08] MEDS: DOCUSATE SODIUM 100 MG CAPSULE. PO SCH (08:28)
[2018-09-08] MEDS ORDERED: hydroCHLOROthiazide 25 MG TABLET PO SCH (09:00)
[2018-09-08] MEDS ORDERED: METOPROLOL TART IMMED RELEASE 50 MG TABLET. PO SCH (09:00)
[2018-09-08] MEDS ORDERED: QUEtiapine 25 MG TABLET. PO SCH (09:00)
[2018-09-08] MEDS ORDERED: carBAMazepine 200 MG TABLET PO SCH (09:00)
[2018-09-08] MEDS: fentaNYL PF VIAL 100 MCG/2 ML VIAL IV PRN ×2 (09:16→11:19)
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
[2018-09-08 10:55] VITALS: BP 124/67
--- NOTE | 2018-09-08 11:32 | PDOC ---
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 Room Air Room Air Room Air 09/07/18 09/07/18 09/07/18 09/07/18 19:59 20:11 20:14 20:29 Temp 97.3 97.3 Pulse 72 69 Resp 18 18 B/P (MAP) 139/88 (105) 120/91 Pulse Ox 98 O2 Delivery Room Air Room Air Room Air 09/07/18 09/07/18 09/07/18 09/08/18 21:09 21:39 22:00 00:12 Temp 97.8 97.8 Pulse 72 Resp 18 18 18 18 B/P (MAP) 130/76 (94) Pulse Ox 97 O2 Delivery Room Air Room Air Room Air Room Air 09/08/18 09/08/18 09/08/18 09/08/18 03:00 05:11 06:14 07:36 Temp 98.4 98.4 Pulse 73 Resp 19 16 16 18 B/P (MAP) 133/78 (96) Pulse Ox 96 O2 Delivery Room Air Room Air Room Air Room Air 509/08/18 09/08/18 09/08/18 08:00 08:25 08:26 09:16 Pulse 73 Resp 18 18 B/P (MAP) 133/78 Pulse Ox 96 O2 Delivery Room Air Room Air Room Air 09/08/18 09/08/18 09/08/18 09:46 10:55 11:19 Temp 97.7 97.7 Pulse 66 Resp 18 18 18 B/P (MAP) 124/67 (86) Pulse Ox 96 97 O2 Delivery Room Air Room Air Room Air Intake and Output 09/07/18 09/07/18 09/08/18 15:00 23:00 07:00 Intake Total 0 ml Output Total 500 ml 350 ml Balance -500 ml -350 ml JENI ROME MD September 08, 2018 11:32
--- NOTE | 2018-09-08 14:45 | EKG ---
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
--- NOTE | 2018-09-08 15:38 | DISCH ---
DISCHARGE INSTRUCTIONS Condition on Discharge Condition on Discharge: Guarded Activity After Discharge Activity Instructions for Disc: Activity as tolerated Lifting Instructions after Dis: No heavy lifting, No pulling or pushing Exercise Instruction after Dis: Progress as tolerated Driving Instructions after Dis: Do not drive Weight Bearing Status after Di: Full weight bearing, As tolerated Diet after Discharge Diet after Discharge: Cardiac, Diabetic No Calorie Level Diet Texture: Regular Liquid Texture: Thin Liquid Swallowing Supervision: None needed Wound Incision Care Wound/Incision Care: No wound care needed Checks after Discharge Checks after discharge: Check blood press - daily Contacting the DR. after DC Call your doctor for: If your condition worsens Treatment/Equipment after DC Adaptive Equipment Issued: JENI Gregorio MD September 08, 2018 15:38
[2018-09-08] MEDS ORDERED: WARFARIN 5 MG TABLET. PO ONE (16:00)
--- NOTE | 2018-09-08 16:32 | PDOC2 ---
CONSULT Date of Consult Date of Consult DATE: 09/08/18 TIME: 16:32 Reason for Consult Reason for Consult: AMS History of Present Illness Reason for Visit: This patient presented with complaint of confusion and vomiting. He reports he previously has history of stroke. Patient is a poor historian. Patient previously had scars on his face from previous injury. Patient currently denies any difficulty speaking, focal extremity weakness. Patient denies any symptoms of dizziness. He reports he wants to go home. Past Medical History Cardiovascular: CAD, HTN, [place], Hyperlipidemia Pulmonary: COPD, Other CENTRAL NERVOUS SYSTEM: Seizure GI: GERD, Peptic Ulcer disease Heme/Onc: No pertinent hx Hepatobiliary: No pertinent hx Psych: Anxiety, Depression Musculoskeletal: Osteoarthritis, Other Rheumatologic: No pertinent hx Infectious disease: No pertinent hx Renal/: Chronic renal insuff Endocrine: Diabetes Past Surgical History Past Surgical History: Other Family History Family History: Cancer, Coronary Artery Disease, Diabetes Social History ALCOHOL: none Drugs: None Lives: with Family Current Problem List Problem List Problems Medical Problems: (1) Abdominal injury Status: Acute (2) Chest pain Status: Acute (3) Confusion Status: Acute (4) Fall Status: Acute Current Medications Current Medications Current Medications Iohexol (Omnipaque 300 Mg/ml) 75 ml 1X ONCE IV Last administered on 09/07/18at 14:28; Start 09/07/18 at 14:00; Stop 09/07/18 at 14:01; Status DC Info (CONTRAST GIVEN -- Rx MONITORING) 1 each PRN DAILY PRN MC SEE COMMENTS; Start 09/07/18 at 14:15; Stop 09/09/18 at 14:14 Fentanyl Citrate (Fentanyl 2ml Vial) 25 mcg 1X ONCE IV Last administered on 09/07/18at 16:09; Start 09/07/18 at 16:15; Stop 09/07/18 at 16:16; Status DC Fentanyl Citrate (Fentanyl 2ml Vial) 50 mcg PRN Q2HR PRN IV PAIN Last administered on 09/08/18at 11:19; Start 09/07/18 at 17:45 Fentanyl Citrate (Fentanyl 2ml Vial) 50 mcg PRN Q4HRS PRN IV PAIN; Start 09/07/18 at 18:00; Stop 09/08/18 at 17:59; Status UNV Alprazolam (Xanax) 1 mg BID PO Last administered on 09/08/18 08:27; Start 09/07/18 at 21:00 Carbamazepine (TEGretol) 200 mg DAILY PO Last administered on 09/08/18 08:27; Start 09/08/18 at 09:00 Docusate Sodium (Colace) 100 mg BID PO Last administered on 09/07/18 20:10; Start 09/07/18 at 21:00 Pantoprazole Sodium (Protonix) 40 mg DAILYAC PO Last administered on 09/08/18 08:27; Start 09/08/18 at 07:30 Hydrochlorothiazide (Hydrodiuril) 25 mg [id number] PO Last administered on 09/08/18 08:26; Start 09/08/18 at 09:00 Metoprolol Tartrate (Lopressor) 100 mg DAILY PO Last administered on 09/08/18 08:26; Start 09/08/18 at 09:00 Mirtazapine (Remeron) 15 mg QHS PO Last administered on 09/07/18 20:10; Start 09/07/18 at 21:00 Oxycodone HCl (Roxicodone) 15 mg PRN TID PRN PO PAIN Last administered on 09/08/18 13:15; Start 09/07/18 at 20:15 Oxycodone HCl (OxyCONTIN) 30 mg Q12HR PO Last administered on 09/08/18 08:25; Start 09/07/18 at 21:00 Quetiapine Fumarate (SEROquel) 50 mg DAILY PO ; Start 09/08/18 at 09:00 Quetiapine Fumarate (SEROquel) 300 mg QHS PO Last administered on 09/07/18 21:09; Start 09/07/18 at 21:00 Trazodone HCl (Desyrel) 50 mg QHS PO Last administered on 09/07/18 21:09; Start 09/07/18 at 21:00 Metoprolol Tartrate (Lopressor) 100 mg 1X ONCE PO ; Start 09/07/18 at 20:30; Stop 09/07/18 at 20:31; Status DC Warfarin Sodium (Coumadin Per Pharmacy) 1 each PRN DAILY PRN MC SEE COMMENTS Last administered on 09/08/18 09:06; Start 09/08/18 at 06:15 Warfarin Sodium (Coumadin) 10 mg 1X WARF ONCE PO ; Start 09/08/18 at 16:00; Stop 09/08/18 at 16:01; Status DC Active Scripts Active Colace (Docusate Sodium) 100 Mg Capsule 1 Cap PO BID Iron Supplement (Ferrous Sulfate) 325 Mg Tablet 1 Tab PO DAILY Reported Alprazolam 1 Mg Tablet 1 Tab PO BID Warfarin Sodium 10 Mg Tablet 11 Mg PO QSUTUTH Trazodone Hcl 50 Mg Tablet 1 Tab PO QHS Warfarin Sodium 10 Mg Tablet 10 Mg PO QMWFSA Remeron (Mirtazapine) 15 Mg Tablet 1 Tab PO QHS Oxycontin (Oxycodone HCl) 30 Mg Tab.er.12h 30 Mg PO BID Seroquel (Quetiapine Fumarate) 300 Mg Tablet 1 Tab PO QHS Oxycodone Hcl Immed.release (Oxycodone Hcl) 15 Mg Tablet 1 Tab PO TID PRN PRN Protonix (Pantoprazole Sodium) 40 Mg Tablet.dr 1 Tab PO DAILY Seroquel (Quetiapine Fumarate) 50 Mg Tablet 1 Tab PO DAILY Metformin Hcl 500 Mg Tablet 1 Tab PO DAILY Hydrochlorothiazide Tablet (Hydrochlorothiazide) 50 Mg Tablet 0.5 Tab PO BID Tegretol (Carbamazepine) 200 Mg Tablet 1 Tab PO DAILY Metoprolol Tartrate 100 Mg Tablet 1 Tab PO DAILY Allergies Allergies: Coded Allergies: Penicillins (Verified Allergy, Intermediate, 06/24/15) ketorolac (Verified Allergy, Intermediate, RASH, ASA is home med, 11/25/15) naproxen (Verified Allergy, Intermediate, ASA is home med, 10/21/15) prochlorperazine (Verified Allergy, Intermediate, 06/24/15) tramadol (Verified Allergy, Intermediate, TOLERATES PERCOCET, 06/24/15) acetaminophen (Verified Adverse Reaction, Mild, 09/08/18) NAUSEA Physical Exam Physical Exam A 10-point review of systems was obtained. Other than the history of present illness the remainder of the review of systems is negative. General no acute distress. HEENT: Normocephalic and atraumatic. NECK: Supple without bruit Respiratory: Clear to auscultation bilaterally Heart: Regular rate and rhythm, S1S2 normal NEUROLOGIC: Mental status Alert oriented. Cranial nerve equally reactive pupils, and intact extraocular movements. No facial asymmetry. scars noted Palate elevates and tongue protrudes in midline. Reflexes are 1-2 with flexor plantar responses. Coordination no dysmetria Strength able to move all exts equally. Sensory exam is intact for light touch and pinprick. Vitals VITALS Vital Signs Date Time Temp Pulse Resp B/P (MAP) Pulse Ox O2 Delivery O2 Flow Rate FiO2 09/08/18 14:15 18 97 Room Air 09/08/18 10:55 97.7 66 124/67 (86) 97.7 Labs Labs Laboratory Tests Test 09/07/18 13:34 09/07/18 13:52 09/07/18 13:54 09/07/18 20:40 Glucose (Fingerstick) 119 mg/dL (70-99) 144 mg/dL (70-99) White Blood Count 4.0 x10^3/uL (4.0-11.0) Red Blood Count 5.10 x10^6/uL (4.30-5.70) Hemoglobin 15.1 g/dL (13.0-17.5) Hematocrit 46.1 % (39.0-53.0) Mean Corpuscular Volume 90 fL (79-100) Mean Corpuscular Hemoglobin 30 pg (25-35) Mean Corpuscular Hemoglobin Concent 33 g/dL (31-37) Red Cell Distribution Width 14.4 % (11.5-14.5) Platelet Count 205 x10^3/uL (140-400) Neutrophils (%) (Auto) 40 % (31-73) Lymphocytes (%) (Auto) 42 % (24-48) Monocytes (%) (Auto) 10 % (0-9) Eosinophils (%) (Auto) 7 % (0-3) Basophils (%) (Auto) 1 % (0-3) Neutrophils # (Auto) 1.6 x10^3uL (1.8-7.7) Lymphocytes # (Auto) 1.7 x10^3/uL (1.0-4.8) Monocytes # (Auto) 0.4 x10^3/uL (0.0-1.1) Eosinophils # (Auto) 0.3 x10^3/uL (0.0-0.7) Basophils # (Auto) 0.0 x10^3/uL (0.0-0.2) Prothrombin Time 26.7 SEC (11.7-14.0) Prothromb Time International Ratio 2.5 (0.8-1.1) Activated Partial Thromboplast Time 39 SEC (24-38) Urine Collection Type Unknown Urine Color Yellow Urine Clarity Clear Urine pH 6.0 Urine Specific [place] 1.020 Urine Protein Negative mg/dL (NEG-TRACE) Urine Glucose (UA) Negative mg/dL (NEG) Urine Ketones (Stick) Negative mg/dL (NEG) Urine Blood Negative (NEG) Urine Nitrite Negative (NEG) Urine Bilirubin Negative (NEG) Urine Urobilinogen Dipstick 0.2 mg/dL (0.2 mg/dL) Urine Leukocyte Esterase Negative (NEG) Urine RBC Occ /HPF (0-2) Urine WBC 0 /HPF (0-4) Urine Bacteria 0 /HPF (0-FEW) Urine Mucus Slight /LPF Sodium Level 141 mmol/L (136-145) Potassium Level 3.7 mmol/L (3.5-5.1) Chloride Level 104 mmol/L (98-107) Carbon Dioxide Level 26 mmol/L (21-32) Anion Gap 11 (6-14) 20 mmol/L (6-14) Blood Urea Nitrogen 12 mg/dL (8-26) Creatinine 1.0 mg/dL (0.7-1.3) Estimated GFR (Cockcroft-Gault) 95.3 BUN/Creatinine Ratio 12 (6-20) Glucose Level 135 mg/dL (70-99) 127 mg/dL (70-99) Calcium Level 9.3 mg/dL (8.5-10.1) Magnesium Level 1.8 mg/dL (1.8-2.4) Total Bilirubin 0.4 mg/dL (0.2-1.0) Aspartate Amino Transf (AST/SGOT) 15 U/L (15-37) Alanine Aminotransferase (ALT/SGPT) 26 U/L (16-63) Alkaline Phosphatase 67 U/L (46-116) Troponin I Quantitative < 0.017 ng/mL (0.000-0.055) Total Protein 7.3 g/dL (6.4-8.2) Albumin 3.9 g/dL (3.4-5.0) Albumin/Globulin Ratio 1.1 (1.0-1.7) Urine Opiates Screen Neg (NEG) Urine Methadone Screen Neg (NEG) Urine Barbiturates Neg (NEG) Urine Phencyclidine Screen Neg (NEG) Urine Amphetamine/Methamphetamine Neg (NEG) Urine Benzodiazepines Screen Pos (NEG) Urine Cocaine Screen Neg (NEG) Urine Cannabinoids Screen Neg (NEG) Ethyl Alcohol Level < 10 mg/dL (0-10) Urine Ethyl Alcohol Neg (NEG) Bedside Hemoglobin 16.0 g/dL (14-18) Bedside Hematocrit 47 % (37-52) Bedside Sodium 142 mmol/L (135-145) Bedside Potassium 3.6 mmol/L (3.5-5.0) Bedside Chloride 103 mmol/L (98-110) Bedside Total CO2 23 mmol/L (23-32) Bedside Blood Urea Nitrogen 10 mg/dL (8-26) Bedside Creatinine 0.8 mg/dL (0.5-1.4) Bedside Ionized Calcium (Primo) 1.19 mmol/L (1.13-1.32) Test 09/07/18 21:15 09/07/18 23:25 09/08/18 06:57 09/08/18 08:16 Troponin I Quantitative < 0.017 ng/mL (0.000-0.055) < 0.017 ng/mL (0.000-0.055) White Blood Count 4.1 x10^3/uL (4.0-11.0) Red Blood Count 5.14 x10^6/uL (4.30-5.70) Hemoglobin 15.1 g/dL (13.0-17.5) Hematocrit 46.4 % (39.0-53.0) Mean Corpuscular Volume 90 fL (79-100) Mean Corpuscular Hemoglobin 29 pg (25-35) Mean Corpuscular Hemoglobin Concent 33 g/dL (31-37) Red Cell Distribution Width 14.7 % (11.5-14.5) Platelet Count 179 x10^3/uL (140-400) Neutrophils (%) (Auto) 41 % (31-73) Lymphocytes (%) (Auto) 45 % (24-48) Monocytes (%) (Auto) 9 % (0-9) Eosinophils (%) (Auto) 4 % (0-3) Basophils (%) (Auto) 0 % (0-3) Neutrophils # (Auto) 1.7 x10^3uL (1.8-7.7) Lymphocytes # (Auto) 1.8 x10^3/uL (1.0-4.8) Monocytes # (Auto) 0.4 x10^3/uL (0.0-1.1) Eosinophils # (Auto) 0.2 x10^3/uL (0.0-0.7) Basophils # (Auto) 0.0 x10^3/uL (0.0-0.2) Sodium Level 143 mmol/L (136-145) Potassium Level 4.0 mmol/L (3.5-5.1) Chloride Level 107 mmol/L (98-107) Carbon Dioxide Level 29 mmol/L (21-32) Anion Gap 7 (6-14) Blood Urea Nitrogen 14 mg/dL (8-26) Creatinine 0.9 mg/dL (0.7-1.3) Estimated GFR (Cockcroft-Gault) 107.6 Glucose Level 109 mg/dL (70-99) Calcium Level 8.7 mg/dL (8.5-10.1) Glucose (Fingerstick) 146 mg/dL (70-99) Laboratory Tests Test 09/07/18 20:40 09/07/18 21:15 09/07/18 23:25 09/08/18 06:57 Glucose (Fingerstick) 144 mg/dL (70-99) Troponin I Quantitative < 0.017 ng/mL (0.000-0.055) < 0.017 ng/mL (0.000-0.055) White Blood Count 4.1 x10^3/uL (4.0-11.0) Red Blood Count 5.14 x10^6/uL (4.30-5.70) Hemoglobin 15.1 g/dL (13.0-17.5) Hematocrit 46.4 % (39.0-53.0) Mean Corpuscular Volume 90 fL (79-100) Mean Corpuscular Hemoglobin 29 pg (25-35) Mean Corpuscular Hemoglobin Concent 33 g/dL (31-37) Red Cell Distribution Width 14.7 % (11.5-14.5) Platelet Count 179 x10^3/uL (140-400) Neutrophils (%) (Auto) 41 % (31-73) Lymphocytes (%) (Auto) 45 % (24-48) Monocytes (%) (Auto) 9 % (0-9) Eosinophils (%) (Auto) 4 % (0-3) Basophils (%) (Auto) 0 % (0-3) Neutrophils # (Auto) 1.7 x10^3uL (1.8-7.7) Lymphocytes # (Auto) 1.8 x10^3/uL (1.0-4.8) Monocytes # (Auto) 0.4 x10^3/uL (0.0-1.1) Eosinophils # (Auto) 0.2 x10^3/uL (0.0-0.7) Basophils # (Auto) 0.0 x10^3/uL (0.0-0.2) Sodium Level 143 mmol/L (136-145) Potassium Level 4.0 mmol/L (3.5-5.1) Chloride Level 107 mmol/L (98-107) Carbon Dioxide Level 29 mmol/L (21-32) Anion Gap 7 (6-14) Blood Urea Nitrogen 14 mg/dL (8-26) Creatinine 0.9 mg/dL (0.7-1.3) Estimated GFR (Cockcroft-Gault) 107.6 Glucose Level 109 mg/dL (70-99) Calcium Level 8.7 mg/dL (8.5-10.1) Test 09/08/18 08:16 Glucose (Fingerstick) 146 mg/dL (70-99) Assessment/Plan Assessment/Plan This patient presented with complaint of confusion and vomiting. He reports he previously has history of stroke. Patient is a poor historian. Patient previously had scars on his face from previous injury. Patient currently denies any difficulty speaking, focal extremity weakness. Patient denies any symptoms of dizziness. He reports he wants to go home. This patient presented with complaint of confusion, vomiting. Patient had his workup done. Patient currently denies any new neurological complaints. Encephalopathy improved. Check for infectious metabolic etiology. Continue aspirin for stroke prevention. Cardiac recommendations appreciated. Patient does not want to get further workup as a inpatient he wants to get further workup like MRI of brain carotid Doppler as outpatient. Patient reports all he wants his pain medication he will follow up in the clinic. Patient had a CT brain done which did not show any evidence of acute intracranial etiology no evidence of acute hemorrhage or mass. Plan discussed with patient in detail. Risk benefit discussed. He understood the plan CHRIS ELIZABETH MD September 08, 2018 16:32
--- NOTE | 2018-09-08 16:46 | NUR ---
Discharge Note: FRANCA WHYTE Discharge instructions and discharge home medications reviewed with Family Member and a copy given. All questions have been answered and understanding verbalized. The following instructions and handouts were given: Chronic pain, hematoma, TIA Discontinued lines and drains: R FA 20g peripheral IV discontinued, catheter tip intact. Patient discharged to home for self-care, in the company of spouse and family.
== END 2018-09-08 16:46 | disposition home or self-care (01) | DRG 69 ==
LOC: ER 13:25 → 2 SOUTH 16:00
PROVIDERS: ADMIT Internal Medicine; ATTEND Internal Medicine
DX: G45.9 Transient cerebral ischemic attack, unspecified (principal); G93.41 Metabolic encephalopathy; I25.10 Atherosclerotic heart disease of native coronary artery without angina pectoris; I25.2 Old myocardial infarction; I12.9 Hypertensive chronic kidney disease with stage 1 through stage 4 chronic kidney disease, or unspecified chronic kidney disease; E11.22 Type 2 diabetes mellitus with diabetic chronic kidney disease; H91.91 Unspecified hearing loss, right ear; F17.210 Nicotine dependence, cigarettes, uncomplicated; F41.9 Anxiety disorder, unspecified; S30.1XXA Contusion of abdominal wall, initial encounter; W18.39XA Other fall on same level, initial encounter; E78.5 Hyperlipidemia, unspecified; K21.9 Gastro-esophageal reflux disease without esophagitis; J44.9 Chronic obstructive pulmonary disease, unspecified; F32.9 Major depressive disorder, single episode, unspecified; M19.90 Unspecified osteoarthritis, unspecified site; N18.9 Chronic kidney disease, unspecified; G47.33 Obstructive sleep apnea (adult) (pediatric); Z86.711 Personal history of pulmonary embolism; Z79.01 Long term (current) use of anticoagulants; Z79.82 Long term (current) use of aspirin; Z87.442 Personal history of urinary calculi; Z86.73 Personal history of transient ischemic attack (TIA), and cerebral infarction without residual deficits; Z88.6 Allergy status to analgesic agent; Z88.0 Allergy status to penicillin; Z88.8 Allergy status to other drugs, medicaments and biological substances; Z82.49 Family history of ischemic heart disease and other diseases of the circulatory system; Y93.89 Activity, other specified; Y92.89 Other specified places as the place of occurrence of the external cause; Y99.8 Other external cause status; Z87.11 Personal history of peptic ulcer disease; Z83.3 Family history of diabetes mellitus
CPT/HCPCS: 36415; 70450; 71045; 71260; 72125; 74177; 80047; 80048; 80053; 80307; 81001; 82962; 83735; 84484; 85025; 85610; 85730; 93005; 96374; G0480; J3010; Q9967; 99285-25